=== PATIENT | male | born 1985 | race Caucasian/White ===

== ENCOUNTER 2022-12-10 07:49 | Day surgery (SDC) | payer BC ==
[2022-12-05 08:38] VITALS: BP 109/59
[~2022-12-10] VITALS: Ht 172.7 cm; Wt 82.5 kg
[~2022-12-10 07:49] MED LIST: ADVAIR 250-501 EACH INH; ALLEGRA ALLERG180 MG PO
[2022-12-10 08:11] VITALS: BP 124/63
--- NOTE | 2022-12-10 09:55 | NUR ---
12/10/22 0955 Katherine Lacey 0934 PT ARRIVED IN PACU NON RESPONSIVE TO NOXIOUS STIMULI WITH OPA IN PLACE. CHIN LIFT HELD BY RN. 0946 PT REACTIVE. OPA REMOVED. 0950 OXYGEN REMOVED PER PT REQUEST. SATS 95-99% ON RA.
[2022-12-10 10:10] VITALS: BP 106/52
--- NOTE | 2022-12-10 10:13 | NUR ---
NO ONE WAITING DRINKING WATER JELLO GIVEN.
[2022-12-10 11:07] VITALS: BP 111/53
--- NOTE | 2022-12-10 11:19 | NUR ---
has taken jello and water. denies need for pain medicine rates pain 0/10. wants to go home. calling father in law to come get him. getting dressed. instruction have been given, no questions.
--- NOTE | 2022-12-10 11:59 | NUR ---
1115 HAS AMB AND VOIDED QS.
--- NOTE | 2022-12-10 13:55 | OR ---
[facility] [address], [place] [address] Signed DATE OF OPERATION: 12/10/2022 SURGEON: Kris Krishnamurthy MD PREOPERATIVE DIAGNOSES: Nasal obstruction due to septal deformity and inferior turbinate hypertrophy. POSTOPERATIVE DIAGNOSIS: Nasal obstruction due to septal deformity and inferior turbinate hypertrophy. PROCEDURE: Septoplasty, cautery bilateral inferior turbinate, submucosal. ANESTHESIA: General LMA, Owen MON. PREOPERATIVE HISTORY: Libia is a 37-year-old male with nasal obstruction, long history, unresponsive to appropriate medications. Exam in the office had shown septal deformity, inferior turbinate hypertrophy. He is taken to the operating room for the above-mentioned procedures. OPERATIVE PROCEDURE AND FINDINGS: After informed consent, the patient was taken to the operating room, placed in the supine position where general LMA anesthesia was induced. The patient and procedure were verified. The patient received preoperative intranasal oxymetazoline, intravenous Ancef. Headlight speculum exam of the nasal cavity showed bilateral septal deformities, large spur shelf anteriorly. These deformities were injected with 1% lidocaine with epinephrine submucosal. were then removed with Carol Ann. Airway was markedly improved in this manner, deformity corrected. The inferior turbinates were then cauterized with a long handle needle point cautery starting on the right side. Multiple transmucosal passes on the inferior turbinate on the medial and inferior surface starting anteriorly extending all the way back posteriorly. The same procedure on the left inferior turbinate. Excellent decongestion and shrinkage of the turbinates was obtained in this manner. Minimal bleeding stopped afterwards. Packing was then placed. Trimmed Merocel equal amount one piece each side coated with Neosporin tied anteriorly over a pad. The pharynx was suctioned clear of blood and secretions. The patient was then awakened, extubated, and transported to recovery room in good condition. No complications. Electronically Signed By: KRIS KRISHNAMURTHY MD 12/10/22 1355 PATIENT NAME: LIBIA ROSE OPERATIVE REPORT DATE OF : 81 REPORT #: [id number] PHYSICIAN: KRIS KRISHNAMURTHY MD PCP: PAYAL SMITH PAC REPORT IS CONFIDENTIAL AND NOT TO BE RELEASED WITHOUT AUTHORIZATION [facility] [address] [place] [phone] Signed BLOOD LOSS: Minimal. SPECIMEN: No specimens. DRAINS: No drains. PACKING: One piece of Merocel each nostril. Kris Krishnamurthy MD GC/MODL /[id number] Copies: ~ Electronically Signed By: KRIS KRISHNAMURTHY MD 12/10/22 1355 PATIENT NAME: LIBIA ROSE OPERATIVE REPORT DATE OF : 81 REPORT #: [id number] PHYSICIAN: KRIS KRISHNAMURTHY MD PCP: PAYAL SMITH PAC REPORT IS CONFIDENTIAL AND NOT TO BE RELEASED WITHOUT AUTHORIZATION
--- NOTE | 2022-12-10 14:06 | NUR ---
ASSESS TIMED 1159 WAS DONEAT 1115.
== END 2022-12-10 11:15 | disposition home or self-care (01) ==
LOC: OPS 07:49 → DS 07:49 → OPS 09:00
PROVIDERS: ATTEND Otolaryngology
PROC: 09BM0ZZ Excision of Nasal Septum, Open Approach (ICD-10-PCS; principal; 2022-12-10 09:00)
PROC: 09BL7ZZ Excision of Nasal Turbinate, Via Natural or Artificial Opening (ICD-10-PCS; 2022-12-10 09:00)
DX: J34.2 Deviated nasal septum (principal); J34.3 Hypertrophy of nasal turbinates
CPT/HCPCS: 00160; A9270; J0461; J0690; J1100; J1885; J2250; J2405; J2704; J2765; J3010; J7121